=== PATIENT | male | born 1960 | race Caucasian/White ===

== ENCOUNTER → 2018-02-27 | Outpatient (CLI) | payer OTHER ==
--- NOTE | 2018-02-27 11:08 | RADIOLOGY IMAGING REPORT ---
FACILITY: [facility] PATIENT NAME: Gabino Ramos : 1960 MR: [id number] V: [id number] EXAM DATE: ORDERING PHYSICIAN: KRISTIAN INMAN TECHNOLOGIST: Location: [facility] Patient: Gabino Ramos : 1960 Visit/Account:[id number] Date of Sevice: 02/27/2018 EXAMINATION: CT Lumbar spine without intravenous contrast HISTORY: Back pain. COMPARISON: None available. TECHNIQUE: Noncontrast axial CT of the lumbar spine with sagittal and coronal reformats. IV contrast was not given, however there is intervertebral disc contrast at L3-L4, L4-L5, and L5-S1. One of the following dose optimization techniques was utilized in the performance of this exam: Autom ated exposure control; adjustment of the mA and/or kV according to the patient's size; or use of an i terative reconstruction technique. Specific details can be referenced in the facility's radiology C T exam operational policy. FINDINGS: Alignment: Mild convex leftward curvature. Vertebral bodies: Negative. Posterior elements: Multilevel facet hypertrophy. Hardware: None. Disc Spaces: Multilevel degenerative disc disease. Status post discogram at L3-L4, L4-L5, and L5-S1. Soft tissues: Negative. Visualized retroperitoneal / abdominal structures: Negative. IMPRESSION: Multilevel degenerative disc disease and facet hypertrophy with mild convex leftward curv ature. Discogram at L3-L4, L4-L5, and L5-S1. Report Dictated By: Garfield Arias MD at 02/27/2018 10:35 AM Report E-Signed By: Garfield Arias MD at 02/27/2018 11:04 AM WSN:[id number]
== END ==
LOC: CT 10:07
PROVIDERS: ATTEND Physical Medicine & Rehabilitation Pain Medicine
DX: M51.36 Other intervertebral disc degeneration, lumbar region (principal)
CPT/HCPCS: 72295